=== PATIENT | male | born 1980 | race Caucasian/White ===

== ENCOUNTER 2017-06-05 18:51 | Emergency (ER) | payer OTHER ==
[~2017-06-05] VITALS: Ht 177.8 cm; Wt 116.2 kg
[2017-06-05] MEDS ORDERED: IV NORMAL SALINE 1,000ML 1,000 ML IV SCH (19:21)
[2017-06-05] MEDS ORDERED: FOLIC ACID 1 MG TABLET PO ONE (19:30)
[2017-06-05] MEDS ORDERED: THIAMINE 100 MG TABLET. PO ONE (19:30)
[2017-06-05] MEDS ORDERED: MULTIVITAMIN with MINERAL TABLET. PO ONE (19:30)
[2017-06-05 20:05] LABS: BASO # 0.1 x10^3/uL (0.0-0.2); BASO % 1 % (0-3); EOS # 0.2 x10^3/uL (0.0-0.7); EOS % 4 % (0-3); HEMATOCRIT 43.2 % (39.0-53.0); HEMOGLOBIN 14.6 g/dL (13.0-17.5); LYMPH # 3.4 x10^3/uL (1.0-4.8); LYMPH % 52 % (24-48); MEAN CORPUSCULAR HEMOGLOBIN 31 pg (25-35); MEAN CORPUSCULAR HGB CONC 34 g/dL (31-37); MEAN CORPUSCULAR VOLUME 92 fL (79-100); MONO # 0.4 x10^3/uL (0.0-1.1); MONO % 6 % (0-9); NEUT # 2.4 x10^3uL (1.8-7.7); NEUT % 37 % (31-73); PLATELET COUNT 180 x10^3/uL (140-400); RED BLOOD COUNT 4.69 x10^6/uL (4.30-5.70); WHITE BLOOD COUNT 6.5 x10^3/uL (4.0-11.0)
[2017-06-05 20:18] LABS: ALBUMIN 3.9 g/dL (3.4-5.0); CALCIUM 8.4 mg/dL (8.5-10.1); CREATININE 0.8 mg/dL (0.7-1.3); DIRECT BILIRUBIN 0.1 mg/dL (0.0-0.2); GFR 108.8; MAGNESIUM 1.9 mg/dL (1.8-2.4); POTASSIUM 3.7 mmol/L (3.5-5.1); TOTAL BILIRUBIN 0.3 mg/dL (0.2-1.0); TOTAL PROTEIN 8.6 g/dL (6.4-8.2)
[2017-06-05 23:00] VITALS: BP 128/84
--- NOTE | 2017-06-05 23:40 | PHYS DOC ---
Past History Past Medical History: Alcoholism, Asthma, Bipolar, COPD, CVA, Depression, Hypertension Past Surgical History: Other Alcohol Use: Heavy Drug Use: None Adult General Chief Complaint Chief Complaint: ALCOHOL INTOXICATION HPI HPI Patient is a 37 year old M who presents with alcohol intoxication. Bacilio arrived via EMS after being found intoxicated. His history is limited by a previous stroke and head injury. He has difficulty with word finding which seems to be chronic he also has right-sided symptoms since he had his stroke. He does not describe any new pain or any other new symptoms at this time. Review of Systems Review of Systems Constitutional: Denies fever or chills [] Eyes: Denies change in visual acuity, redness, or eye pain [] HENT: Denies nasal congestion or sore throat [] Respiratory: Denies cough or shortness of breath [] Cardiovascular: No additional information not addressed in HPI [] GI: Denies abdominal pain, nausea, vomiting, bloody stools or diarrhea [] : Denies dysuria or hematuria [] Musculoskeletal: Denies back pain or joint pain [] Integument: Denies rash or skin lesions [] Neurologic: Denies headache, focal weakness or sensory changes [] Endocrine: Denies polyuria or polydipsia [] Limited due to intoxication Family History Family History Noncontributory Current Medications Current Medications Current Medications Medications (Trade) Dose Ordered Sig/Ramírez Start Time Stop Time Status Last Admin Dose Admin Folic Acid (Folic Acid) 1 mg 1X ONCE 06/05/17 19:30 06/05/17 19:32 DC 06/05/17 19:45 1 MG Multivitamins/ Calcium (Thera-M Plus) 1 tab 1X ONCE 06/05/17 19:30 06/05/17 19:32 DC 06/05/17 19:45 1 TAB Sodium Chloride 1,000 ml @ 1,000 mls/hr Q1H 06/05/17 19:21 06/05/17 20:21 DC 06/05/17 19:45 1,000 MLS/HR Thiamine HCl (Vitamin B-1) 100 mg 1X ONCE 06/05/17 19:30 06/05/17 19:32 DC 06/05/17 19:45 100 MG Allergies Allergies Allergies Coded Allergies Type Severity Reaction Last Updated Verified No Known Drug Allergies 12/06/15 No Physical Exam Physical Exam Constitutional: Well developed, well nourished, no acute distress, intoxicated HENT: Normocephalic, atraumatic, bilateral external ears normal, oropharynx moist, no oral exudates, nose normal. [] Surgical scars noted on the left side of the scalp Eyes: PERRLA, EOMI, conjunctiva normal, no discharge. [] Neck: Normal range of motion, no tenderness, supple, no stridor. [] Cardiovascular:Heart rate regular rhythm, no murmur [] Lungs & Thorax: Bilateral breath sounds clear to auscultation [] Abdomen: Bowel sounds normal, soft, no tenderness, no masses, no pulsatile masses. [] Skin: Warm, dry, no erythema, no rash. [] Extremities: No tenderness, no cyanosis, no clubbing, ROM intact, no edema. [] Neurologic: Limited exam due to intoxication. Seems to move all extremities equally however difficulty walking due to right-sided weakness. Speech is limited, reportedly from previous stroke. Speech impairment limits assessment Psychologic: Affect normal, mood labile. Intoxicated Current Patient Data Vital Signs Vital Signs Date Time Temp Pulse Resp B/P (MAP) Pulse Ox O2 Delivery O2 Flow Rate FiO2 06/05/17 18:55 98.1 98 20 93 Room Air Lab Results Laboratory Tests Test 06/05/17 19:45 White Blood Count 6.5 x10^3/uL (4.0-11.0) Red Blood Count 4.69 x10^6/uL (4.30-5.70) Hemoglobin 14.6 g/dL (13.0-17.5) Hematocrit 43.2 % (39.0-53.0) Mean Corpuscular Volume 92 fL (79-100) Mean Corpuscular Hemoglobin 31 pg (25-35) Mean Corpuscular Hemoglobin Concent 34 g/dL (31-37) Red Cell Distribution Width 15.0 % (11.5-14.5) H Platelet Count 180 x10^3/uL (140-400) Neutrophils (%) (Auto) 37 % (31-73) Lymphocytes (%) (Auto) 52 % (24-48) H Monocytes (%) (Auto) 6 % (0-9) Eosinophils (%) (Auto) 4 % (0-3) H Basophils (%) (Auto) 1 % (0-3) Neutrophils # (Auto) 2.4 x10^3uL (1.8-7.7) Lymphocytes # (Auto) 3.4 x10^3/uL (1.0-4.8) Monocytes # (Auto) 0.4 x10^3/uL (0.0-1.1) Eosinophils # (Auto) 0.2 x10^3/uL (0.0-0.7) Basophils # (Auto) 0.1 x10^3/uL (0.0-0.2) Sodium Level 146 mmol/L (136-145) H Potassium Level 3.7 mmol/L (3.5-5.1) Chloride Level 108 mmol/L (98-107) H Carbon Dioxide Level 25 mmol/L (21-32) Anion Gap 13 (6-14) Blood Urea Nitrogen 7 mg/dL (8-26) L Creatinine 0.8 mg/dL (0.7-1.3) Estimated GFR (Cockcroft-Gault) 108.8 Glucose Level 99 mg/dL (70-99) Calcium Level 8.4 mg/dL (8.5-10.1) L Magnesium Level 1.9 mg/dL (1.8-2.4) Total Bilirubin 0.3 mg/dL (0.2-1.0) Direct Bilirubin 0.1 mg/dL (0.0-0.2) Aspartate Amino Transferase (AST) 175 U/L (15-37) H Alanine Aminotransferase (ALT) 144 U/L (16-63) H Alkaline Phosphatase 133 U/L (46-116) H Total Protein 8.6 g/dL (6.4-8.2) H Albumin 3.9 g/dL (3.4-5.0) Ethyl Alcohol Level 313 mg/dL (0-10) H Radiology/Procedures Radiology/Procedures Declined imaging Impressions: Previous imaging was reviewed Course & Med Decision Making Course & Med Decision Making Pertinent Labs and Imaging studies reviewed. (See chart for details) Bacilio's discharge was delayed as multiple attempts were made to contact his mother and/or father. Initially his mother was contacted and stated that she would be here to pick him up approximately one hour after arrival. Thereafter she was unable to be obtained via phone. His assessment was limited due to inability to contact family for baseline. He was observed in the emergency room for more than 4 hours. His exam was consistent during this time. It appears that his symptoms are chronic and not acute. He was advised that admission was recommended and that leaving the hospital may result in worsening medical condition including but not limited to . He verbalized understanding stating he was given anyway. He did leave AGAINST MEDICAL ADVICE Dragon Disclaimer Dragon Disclaimer This chart was dictated in whole or in part using Voice Recognition software in a busy, high-work load, and often noisy Emergency Department environment. It may contain unintended and wholly unrecognized errors or omissions. Departure Departure: Impression: Primary Impression: Abnormal laboratory test result Additional Impression: Alcohol intoxication Disposition: 07 AGAINST MEDICAL ADVICE Condition: GUARDED Problem Qualifiers Additional Impression: Alcohol intoxication Complication of substance-induced condition: with unspecified complication Qualified Codes: F10.929 - Alcohol use, unspecified with intoxication, unspecified SALVADOR ABBASI MD Jun 05, 2017 23:40
== END 2017-06-05 23:15 | disposition left against medical advice (07) ==
LOC: ER 18:51
DX: F10.229 Alcohol dependence with intoxication, unspecified (principal); R94.8 Abnormal results of function studies of other organs and systems; I10 Essential (primary) hypertension; J44.9 Chronic obstructive pulmonary disease, unspecified; Z86.73 Personal history of transient ischemic attack (TIA), and cerebral infarction without residual deficits; F32.9 Major depressive disorder, single episode, unspecified
CPT/HCPCS: 36415; 80048; 80076; 83735; 85025; 96360; 99284; G0480; J7030

== ENCOUNTER 2019-07-31 14:09 | Emergency (ER) | payer MEDICAID, OTHER ==
[~2019-07-31] VITALS: Ht 177.8 cm; Wt 116.2 kg
[2019-07-31] MEDS ORDERED: IV NORMAL SALINE 1,000ML 1,000 ML IV ONE (14:45)
[2019-07-31 15:13] LABS: BASO % 1 % (0-3); EOS # 0.2 x10^3/uL (0.0-0.7); EOS % 3 % (0-3); HEMATOCRIT 39.2 % (39.0-53.0); HEMOGLOBIN 12.9 g/dL (13.0-17.5); LYMPH # 2.2 x10^3/uL (1.0-4.8); LYMPH % 42 % (24-48); MEAN CORPUSCULAR HEMOGLOBIN 31 pg (25-35); MEAN CORPUSCULAR HGB CONC 33 g/dL (31-37); MEAN CORPUSCULAR VOLUME 95 fL (79-100); MONO # 0.5 x10^3/uL (0.0-1.1); MONO % 9 % (0-9); NEUT # 2.5 x10^3uL (1.8-7.7); NEUT % 46 % (31-73); PLATELET COUNT 145 x10^3/uL (140-400); RED BLOOD COUNT 4.12 x10^6/uL (4.30-5.70); RED CELL DISTRIBUTION WIDTH 13.9 % (11.5-14.5); WHITE BLOOD COUNT 5.4 x10^3/uL (4.0-11.0)
[2019-07-31 15:40] LABS: ALBUMIN 3.5 g/dL (3.4-5.0); ALBUMIN/GLOBULIN RATIO 0.8 (1.0-1.7); CALCIUM 8.6 mg/dL (8.5-10.1); CREATININE 0.7 mg/dL (0.7-1.3); GFR 125.5; MAGNESIUM 1.9 mg/dL (1.8-2.4); TOTAL BILIRUBIN 0.4 mg/dL (0.2-1.0); TOTAL PROTEIN 7.9 g/dL (6.4-8.2)
--- NOTE | 2019-07-31 15:46 | PHYS DOC ---
Past History Past Medical History: Alcoholism, Asthma, Bipolar, COPD, CVA (hemorrhagic), Depression, Hypertension, Stroke Past Surgical History: Other Past Surgical History cranial bone flap/trepanation Smoking: Cigarettes Alcohol Use: Sober Drug Use: None Adult General Chief Complaint Chief Complaint: WEAKNESS/GENERALIZED HPI HPI 39-year-old male with past medical history of hemorrhagic stroke with residual right-sided deficit presents with report of increased weakness. Mother reports patient called her stating that he had difficulty getting up off the floor which started yesterday. Patient denies recent trauma. Denies fever or chills. Denies nausea or vomiting. Denies use of blood thinners. Review of Systems Review of Systems Constitutional: Denies fever or chills Eyes: Denies redness or eye pain HENT: Denies nasal congestion or sore throat Respiratory: Denies cough or shortness of breath Cardiovascular: Denies chest pain or palpitations GI: Denies abdominal pain, nausea, or vomiting : Denies dysuria or hematuria Musculoskeletal: Denies back pain or joint pain Integument: Denies rash or skin lesions Neurologic: Denies headache; reports increased weakness and difficulty walking Complete systems were reviewed and found to be within normal limits, except as documented in this note. Current Medications Current Medications Current Medications Medications (Trade) Dose Ordered Sig/Ramírez Start Time Stop Time Status Last Admin Dose Admin Sodium Chloride 1,000 ml @ 1,000 mls/hr 1X ONCE 07/31/19 14:45 07/31/19 15:44 07/31/19 15:02 1,000 MLS/HR Allergies Allergies Allergies Coded Allergies Type Severity Reaction Last Updated Verified No Known Drug Allergies 12/06/15 No Physical Exam Physical Exam Constitutional: Well developed, well nourished, no acute distress, non-toxic appearance HENT: Normocephalic, atraumatic, oropharynx moist Eyes: PERRL, EOMI, conjunctiva normal, no discharge Neck: Normal range of motion, no tenderness, supple Cardiovascular: Heart rate normal, regular rhythm Lungs & Thorax: Bilateral breath sounds clear to auscultation, no wheezing Abdomen: Soft, no tenderness Skin: Warm, dry, no erythema, no rash Extremities: No tenderness, ROM intact, no edema, no deformity, weakness to rig ht side as below Neurologic: Alert and oriented X 3, strength 3/5 in RLE and 4/5 in RUE, patient reports decreased sensation to RLE in comparison to LLE, difficulty with finger to nose with right arm, mild expressive aphasia and dysarthria noted Psychologic: Affect normal, judgement normal Current Patient Data Vital Signs Vital Signs Date Time Temp Pulse Resp B/P (MAP) Pulse Ox O2 Delivery O2 Flow Rate FiO2 07/31/19 14:09 98.3 90 16 95 Room Air Lab Results Laboratory Tests Test 07/31/19 14:55 White Blood Count 5.4 x10^3/uL (4.0-11.0) Red Blood Count 4.12 x10^6/uL (4.30-5.70) L Hemoglobin 12.9 g/dL (13.0-17.5) L Hematocrit 39.2 % (39.0-53.0) Mean Corpuscular Volume 95 fL (79-100) Mean Corpuscular Hemoglobin 31 pg (25-35) Mean Corpuscular Hemoglobin Concent 33 g/dL (31-37) Red Cell Distribution Width 13.9 % (11.5-14.5) Platelet Count 145 x10^3/uL (140-400) Neutrophils (%) (Auto) 46 % (31-73) Lymphocytes (%) (Auto) 42 % (24-48) Monocytes (%) (Auto) 9 % (0-9) Eosinophils (%) (Auto) 3 % (0-3) Basophils (%) (Auto) 1 % (0-3) Neutrophils # (Auto) 2.5 x10^3uL (1.8-7.7) Lymphocytes # (Auto) 2.2 x10^3/uL (1.0-4.8) Monocytes # (Auto) 0.5 x10^3/uL (0.0-1.1) Eosinophils # (Auto) 0.2 x10^3/uL (0.0-0.7) Basophils # (Auto) 0.0 x10^3/uL (0.0-0.2) Sodium Level 145 mmol/L (136-145) Potassium Level 4.0 mmol/L (3.5-5.1) Chloride Level 107 mmol/L (98-107) Carbon Dioxide Level 28 mmol/L (21-32) Anion Gap 10 (6-14) Blood Urea Nitrogen 5 mg/dL (8-26) L Creatinine 0.7 mg/dL (0.7-1.3) Estimated GFR (Cockcroft-Gault) 125.5 BUN/Creatinine Ratio 7 (6-20) Glucose Level 89 mg/dL (70-99) Calcium Level 8.6 mg/dL (8.5-10.1) Magnesium Level 1.9 mg/dL (1.8-2.4) Total Bilirubin 0.4 mg/dL (0.2-1.0) Aspartate Amino Transferase (AST) 52 U/L (15-37) H Alanine Aminotransferase (ALT) 79 U/L (16-63) H Alkaline Phosphatase 54 U/L (46-116) Creatine Kinase 305 U/L (39-308) Creatine Kinase MB (Mass) 1.9 ng/mL (0.0-3.6) Creatine Kinase MB Relative Index 0.6 % (0-4) Troponin I Quantitative 0.017 ng/mL (0-0.055) Total Protein 7.9 g/dL (6.4-8.2) Albumin 3.5 g/dL (3.4-5.0) Albumin/Globulin Ratio 0.8 (1.0-1.7) L Ethyl Alcohol Level < 10 mg/dL (0-10) EKG EKG @1522 NSR at 87bpm, NO ST elevation, Q wave III and aVF, NO ST elevation Radiology/Procedures Radiology/Procedures PROCEDURE: CT HEAD WO CONTRAST CT HEAD WO CONTRAST Date: 07/31/2019 2:41 PM Clinical Indication: Weakness Comparison: 12/06/2015. Technique: 5 mm axial tomographic images were obtained of the head without contrast. These were viewed on brain and bone windows. One or more of the following dose reduction techniques were utilized: Automated exposure control (AEC), Adjustment of mA and/or kV according to patient size, Use of iterative reconstruction technique such as ASiR, CT scan done according to ALARA and image gently/image wisely Findings: Large area of left parietotemporal encephalomalacia. Exvacuodilatation of the left lateral ventricle. No intra- or extra-axial mass or fluid collection. No acute hemorrhage. The rey-white matter junction is normal. The subarachnoid cisterns are patent. The visualized paranasal sinuses are normal. The visualized portions of the orbits and globes are normal. The mastoid air cells are clear. Postsurgical changes of prior left frontoparietotemporal craniotomy and cranioplasty. Impression: 1. No acute intracranial process. 2. Large area of left parietotemporal encephalomalacia. Electronically signed by: Thomas Dover MD (07/31/2019 3:49 PM) [facility] PROCEDURE: PORTABLE CHEST 1V PORTABLE CHEST 1V History: Weakness Comparison: July 09, 2012 Findings: Single view of the chest is submitted. There is a somewhat lesser degree of inspiration for this exam. There is no new lobar consolidation, pleural fluid, pneumothorax. Cardiac silhouette appears somewhat more prominent although probably accentuated by lesser degree of inspiration. Impression: 1. There is a lesser degree of inspiration for this exam, no significant infiltrate. Electronically signed by: Thomas Oliver MD (07/31/2019 3:54 PM) [facility] Course & Med Decision Making Course & Med Decision Making Pertinent Labs and Imaging studies reviewed. (See chart for details) Patient with prior history of hemorrhagic stroke with residual right-sided deficit and speech difficulties presents with report of now being unable to stand or walk which started yesterday. NIHSS 7 which is possibly baseline per patient. CT head without acute process. Labs obtained and posted to chart. EKG stable. CXR stable. UA without signs of infection. Patient apparently lives alone and there is concern that there is increased weakness per mother above baseline. Patient requiring admission for further evaluation and treatment. Given need for possible MRI, Dr. Arenas (hospitalist) requests transfer for admission to [facility]. Discussed findings and plan with patient and family, who acknowledge understanding and agreement. Dragon Disclaimer Dragon Disclaimer This electronic medical record was generated, in whole or in part, using a voice recognition dictation system. Departure Departure: Impression: Primary Impression: Weakness Additional Impression: History of hemorrhagic stroke with residual hemiplegia Disposition: 05 TRANSFER OTHER ([facility]- Dr. Arenas) Admitting Physician: Lyla Arenas Condition: STABLE Referrals: JOE RAMEY MD (PCP) NIHSS - ED NIH Stroke Scale: NIH Stroke Scale Response (Comments) Value Level of Consciousness: 0 Alert/Responsive 0 LOC Questions: 0 Answers both correctly 0 LOC Commands: 0 Performs both tasks 0 Best Gaze: 0 Normal 0 Visual: 0 No visual loss 0 Facial Palsy: 0 Normal, symmetrical 0 Motor - Left Arm 0 No drift 0 Motor - Right Arm 1 Drifts but can hold 1 Motor - Left Leg 0 No drift 0 Motor: Right Leg 2 Some effort 2 Limb Ataxia: 1 One limb 1 Sensory: 1 Mid to moderate loss 1 Best Language: 1 Mild to mod aphasia 1 Dysathria: 1 Mild to moderate 1 Extinction and Inattention: 0 Normal 0 Total 7 Problem Qualifiers JAROCHO SOTO DO Jul 31, 2019 15:46
--- NOTE | 2019-07-31 15:52 | RAD ---
CT HEAD WO CONTRAST Date: 07/31/2019 2:41 PM Clinical Indication: Weakness Comparison: 12/06/2015. Technique: 5 mm axial tomographic images were obtained of the head without contrast. These were viewed on brain and bone windows. One or more of the following dose reduction techniques were utilized: Automated exposure control (AEC), Adjustment of mA and/or kV according to patient size, Use of iterative reconstruction technique such as ASiR, CT scan done according to ALARA and image gently/image wisely Findings: Large area of left parietotemporal encephalomalacia. Exvacuodilatation of the left lateral ventricle. No intra- or extra-axial mass or fluid collection. No acute hemorrhage. The rey-white matter junction is normal. The subarachnoid cisterns are patent. The visualized paranasal sinuses are normal. The visualized portions of the orbits and globes are normal. The mastoid air cells are clear. Postsurgical changes of prior left frontoparietotemporal craniotomy and cranioplasty. Impression: 1. No acute intracranial process. 2. Large area of left parietotemporal encephalomalacia. Electronically signed by: Thomas Dover MD (07/31/2019 3:49 PM) [facility]
[2019-07-31 15:55] LABS: BARBITURATES NEG (NEG); BENZODIAZEPINES NEG (NEG); CANNABINOIDS NEG (NEG); COCAINE NEG (NEG); METHADONE NEG (NEG); OPIATES NEG (NEG); PHENCYCLIDINE NEG (NEG)
[2019-07-31 15:56] LABS: AMPHETAMINE/METHAMPHETAMINE NEG (NEG)
--- NOTE | 2019-07-31 15:57 | RAD ---
PORTABLE CHEST 1V History: Weakness Comparison: July 09, 2012 Findings: Single view of the chest is submitted. There is a somewhat lesser degree of inspiration for this exam. There is no new lobar consolidation, pleural fluid, pneumothorax. Cardiac silhouette appears somewhat more prominent although probably accentuated by lesser degree of inspiration. Impression: 1. There is a lesser degree of inspiration for this exam, no significant infiltrate. Electronically signed by: Thomas Oliver MD (07/31/2019 3:54 PM) [facility]
[2019-07-31 16:04] LABS: BILIRUBIN,URINE NEG (NEG); CLARITY,URINE CLEAR; COLOR,URINE YELLOW; GLUCOSE,URINE NEG (NEG)
[2019-07-31 16:05] LABS: BACTERIA,URINE 0 /HPF (0-FEW); NITRITE,URINE NEG (NEG); RBC,URINE 0 /HPF (0-2); SQUAMOUS EPITHELIAL CELL,UR OCC /LPF; UROBILINOGEN,URINE 0.2 mg/dL (0.2 mg/dL); WBC,URINE RARE /HPF (0-4)
[2019-07-31] MEDS ORDERED: ASPIRIN 325 MG TABLET PO ONE (17:00)
[2019-07-31 18:09] VITALS: BP 133/85
--- NOTE | 2019-08-01 06:41 | EKG ---
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
== END 2019-07-31 18:20 | disposition short-term general hospital (02) ==
LOC: ER 14:09
DX: R53.1 Weakness (principal); R13.0 Aphagia; R47.1 Dysarthria and anarthria; Z86.73 Personal history of transient ischemic attack (TIA), and cerebral infarction without residual deficits; I10 Essential (primary) hypertension; F10.20 Alcohol dependence, uncomplicated; J44.9 Chronic obstructive pulmonary disease, unspecified; F32.9 Major depressive disorder, single episode, unspecified; F17.210 Nicotine dependence, cigarettes, uncomplicated; Y90.0 Blood alcohol level of less than 20 mg/100 ml
CPT/HCPCS: 36415; 70450; 71045; 80053; 80307; 81001; 82553; 83605; 83735; 84484; 85025; 85610; 85730; 93005; 99285; G0480; J7030

== ENCOUNTER → 2021-04-08 | Outpatient (CLI) | payer MEDICAID ==
--- NOTE | 2021-04-08 10:37 | RAD ---
EXAMINATION: US ABDOMEN LIMITED 04/08/2021 9:40 AM INDICATION: Hep C, elevated LFTs TECHNIQUE: Crocker scale and color Doppler ultrasound images of the right upper quadrant were obtained. COMPARISON: None. FINDINGS: Liver: The liver is normal in size measuring 17 cm in length. Mildly coarse coarsened echotexture. N o focal liver lesion. Main portal vein is patent with antegrade flow. Gallbladder: The gallbladder is normal in caliber. No cholelithiasis or sludge. The gallbladder wa ll is mildly thickened measuring 5 mm. Bile ducts: The common bile duct is normal measuring 2 mm. No intrahepatic biliary duct dilatation. Right kidney: The right kidney measures 10.1 x 5.0 x 5.9 cm. Normal cortical thickness and echogenic ity. No hydronephrosis. Other: IVC is patent at the level the liver. The pancreas is normal where visualized. No ascites vis ualized. IMPRESSION: 1. Slightly coarsened appearance of the liver without focal lesion. This could be related to hepatoce llular disease. 2. Mildly thickened gallbladder wall measuring 5 mm, nonspecific. There is no gallbladder distention or cholelithiasis. Electronically signed by: Ally Karimi MD (04/08/2021 10:34 AM) [id number]
== END ==
LOC: US 09:37
PROVIDERS: ATTEND Internal Medicine Gastroenterology
DX: R79.89 Other specified abnormal findings of blood chemistry (principal); B19.20 Unspecified viral hepatitis C without hepatic coma
CPT/HCPCS: 76705